=== PATIENT | female | born 1950 | race Caucasian/White ===

== ENCOUNTER → 2024-01-28 | Outpatient (CLI) | payer MEDICARE ==
[2024-01-28 12:31] LABS: African American GFR (CKD) >90 (>60 ml/min/1.73 sqM); Blood Urea Nitrogen 14 mg/dL (7-17); Non-African American GFR(CKD) >90 (>60 ml/min/1.73 sqM)
--- NOTE | 2024-02-01 17:47 | CT ---
EXAMINATION TYPE: CT abdomen wo/w con CT DLP: 1176 mGycm, Automated exposure control for dose reduction was used. DATE OF EXAM: 01/28/2024 1:03 PM COMPARISON: 09/20/2023 MRI CLINICAL INDICATION:Female, 73 years old with history of E27.8 OTHER SPECIFIED DISORDERS OF ADRENAL G LAND; adrenal mass TECHNIQUE: Axial CT abdomen wo/w con;Sagittal and coronal reformats were created on a separate works tation. Contrast used:100 mL of Isovue 300 without and with IV Contrast, (none if empty) Oral contrast used: with Oral Contrast (none if empty) FINDINGS: LOWER CHEST: Unremarkable ABDOMEN LIVER: Unremarkable GALLBLADDER AND BILE DUCTS: Unremarkable. PANCREAS: Unremarkable. SPLEEN: Unremarkable. ADRENAL GLANDS: Left adrenal nodule measuring 20 x 17 mm 26 Hounsfield units noncontrast. 89 Hounsfield units postcontrast. 40 Hounsfield units 15 minutes delay. Absolute Washout:77.8% Absolute washout of 60% or higher is consistent with an adenoma. Relative Washout:55.1% Relative washout of 40% or higher is consistent with an adenoma. KIDNEYS AND URETERS: No evidence of hydronephrosis or renal calculus. The ureters are unremarkable. STOMACH AND BOWEL: No evidence of bowel obstruction. PERITONEUM/RETROPERITONEUM: No evidence of pneumoperitoneum or free fluid. VASCULATURE: No evidence of aortic aneurysm. MUSCULOSKELETAL: No acute osseous abnormalities LYMPH NODES: No gross evidence for lymphadenopathy. SOFT TISSUE/ABDOMINAL WALL: Scattered simple appearing probable hepatic cyst. Mild nodular contour to the liver border. Coronary lobe hypertrophy changes. IMPRESSION: 1. Left adrenal nodule with washout characteristics compatible with adrenal adenoma in the absence o f other risk factors of metastatic disease. This is stable in size from 09/20/2023. 2. No evidence for acute abdominal process.
== END | disposition home or self-care (01) ==
LOC: RADCTMAIN 11:28
PROVIDERS: ATTEND Internal Medicine
DX: E27.8 Other specified disorders of adrenal gland (principal)
CPT/HCPCS: 82565; 84520; 74170; 36415; Q9967